=== PATIENT | female | born 1975 | race Caucasian/White ===

== ENCOUNTER 2016-12-30 11:57 | Emergency (ER) | payer BC ==
[2016-12-30 12:40] VITALS: BP 118/59
--- NOTE | 2016-12-30 13:53 | UC ---
Lower Extremity/Ankle HPI - HPI Summary HPI Summary: sudden pain in right lateral ankle began last night when she got off a snow mobile---has had continued pain and swelling - History of Current Complaint Chief Complaint: UCLowerExtremity Stated Complaint: RIGHT ANKLE INJURY Time Seen by Provider: 12/30/16 13:49 Hx Obtained From: Patient Hx Last Menstrual Period: 12/26/16 ?: No Onset/Duration: Sudden Onset, Lasting Hours - 18 hours Severity Initially: Mild Severity Currently: Moderate Pain Intensity: 7 Pain Scale Used: 0-10 Numeric Aggravating Factor(s): Standing, Ambulation Alleviating Factor(s): Rest, Elevation, OTC Meds Able to Bear Weight: Yes - on her heal - Allergies/Home Medications Allergies/Adverse Reactions: Allergies Allergy/AdvReac Type Severity Reaction Status Date / Time No Known Allergies Allergy Verified 12/30/16 12:40 Home Medications: Home Medications Montelukast Sodium TAB* [Singulair 10 MG TAB*] 10 mg PO DAILY 12/30/16 [History Confirmed 12/30/16] buPROPion SR TAB* [Wellbutrin SR TAB*] 150 mg PO BID 12/30/16 [History Confirmed 12/30/16] PMH/Surg Hx/FS Hx/Imm Hx Previously Healthy: No Respiratory History Of: Reports: Asthma - Surgical History Surgical History: Yes Surgery Procedure, Year, and Place: T&A as a child. left knee surgery - Family History Known Family History: Positive: None Family History: denies cardiovascular issues in family lineage - Social History Occupation: Employed Full-time Lives: With Family Alcohol Use: Weekly Substance Use Type: None Smoking Status (MU): Light Every Day Tobacco Smoker Type: Cigarettes Amount Used/How Often: 1 pack per week Length of Time of Smoking/Using Tobacco: On and Off for 19 Years Have You Smoked in the Last Year: Yes Household Exposure Type: Cigarettes - Immunization History Most Recent Tetanus Shot: unknown Review of Systems Constitutional: Negative Skin: Negative Eyes: Negative ENT: Negative Respiratory: Negative Cardiovascular: Negative Gastrointestinal: Negative Genitourinary: Negative Motor: Decreased ROM - right ankle Musculoskeletal: Arthralgia - right lateral ankle Neurological: Negative Psychological: Negative All Other Systems Reviewed And Are Negative: Yes Physical Exam Triage Information Reviewed: Yes Appearance: Well-Appearing, No Pain Distress, Well-Nourished Vital Signs: Initial Vital Signs Temp 97.1 F 12/30/16 12:33 Pulse 71 12/30/16 12:33 Resp 14 12/30/16 12:33 BP 118/59 12/30/16 12:33 Pulse Ox 97 12/30/16 12:33 Vital Signs Reviewed: Yes Eye Exam: Normal Eyes: Positive: Conjunctiva Clear ENT Exam: Normal ENT: Positive: Normal ENT inspection, Hearing grossly normal. Negative: Nasal congestion, Nasal drainage, Trismus, Muffled/hoarse voice Dental Exam: Normal Neck exam: Normal Neck: Positive: Supple, Nontender Respiratory Exam: Normal Respiratory: Positive: Chest non-tender, No respiratory distress, No accessory muscle use Cardiovascular Exam: Normal Cardiovascular: Positive: RRR, Pulses Normal, Brisk Capillary Refill Musculoskeletal: Positive: Strength Limited @ - right ankle, ROM Limited @ - right ankle, Edema @ - right ankle, Other: - pain ful and scant foot movement with Nur test Neurological Exam: Normal Neurological: Positive: Alert, Muscle Tone Normal Psychological Exam: Normal Skin Exam: Normal Diagnostics - Laboratory Diagnostic Studies Completed/Ordered: Soft tissue swelling-no acute bone injury Lower Extremity Course/Dx - Course Course Of Treatment: Giovany, gel ,nwb, walker, pain med rice follow with orth sunday or sunday - Differential Dx/Diagnosis Differential Diagnosis/HQI/PQRI: Contusion, Fracture (Closed), Sprain, Strain, Tendonitis Provider Diagnoses: Soft tissue injury right ankle Discharge - Discharge Plan Condition: Stable Disposition: HOME Prescriptions: Hydrocodone-Acetaminophen [Hydrocodone/Acetaminophen 5-325 mg] 1 tab PO Q6H PRN #20 tab MDD 4 PRN Reason: Pain Ibuprofen TAB* [Motrin TAB* 800 MG] 800 mg PO Q8H PRN #40 tab PRN Reason: Less sever pain Patient Education Materials: How to Choose and Use a Walker (GEN), RICE Therapy (ED), Tendon Rupture (ED), Ankle Strain (ED) Forms: *Work Release Referrals: Josh Herman MD [Medical Doctor] - 3 Days Lexis Benson NP [Primary Care Provider] - Additional Instructions: Non-weight bearing on right ankle/foot until cleared by ortho
[2016-12-30] MEDS ORDERED: Ibuprofen TAB* 400 MG PO ONE (13:55)
--- NOTE | 2016-12-30 14:33 | RAD ---
INDICATION: Lateral ankle pain after stepping ostial Mobile the previous night COMPARISON: None. TECHNIQUE: 3 views of the right ankle were obtained. FINDINGS: Moderate soft tissue swelling is seen overlying the fibular malleolus. The bones are normal alignment. Joint spaces appear maintained. No fracture is seen. IMPRESSION: SOFT TISSUE SWELLING AROUND THE ANKLE WITHOUT UNDERLYING FRACTURE OR DISLOCATION. If the patient's symptoms persist, follow-up imaging is recommended.
== END 2016-12-30 15:35 | disposition home or self-care (01) ==
LOC: UCCORT 11:57
DX: S99.911A Unspecified injury of right ankle, initial encounter (principal); X58.XXXA Exposure to other specified factors, initial encounter; Y93.89 Activity, other specified; Y92.9 Unspecified place or not applicable; F17.210 Nicotine dependence, cigarettes, uncomplicated
CPT/HCPCS: 99213; A9270-GY; G0463

== ENCOUNTER 2019-08-09 13:23 | Emergency (ER) | payer BC ==
--- NOTE | 2019-08-09 13:45 | UC ---
Complaint Female HPI - HPI Summary HPI Summary: INTERMITTENT LEFT LOWER BACK PAIN X1 MONTH. WORSENING INTHE LAST FEW DAYS. NO RECALL OF INJURY OR STRAIN. URINE HAS HAD A STRONG ODOR WELL. THAT IS HER ONLY SYMPTOM. HX OF KIDNEY STONE 20 YEARS AGO. NOTHING MAKES IT BETTER/WORSE - History Of Current Complaint Chief Complaint: UCBackPain Stated Complaint: URINARY SYMPTOMS Time Seen by Provider: 08/09/19 13:29 Hx Obtained From: Patient Hx Last Menstrual Period: 12/26/16 ?: No - vasectomy Aggravating Factor(s): Movement Alleviating Factor(s): Nothing - Allergies/Home Medications Allergies/Adverse Reactions: Allergies Allergy/AdvReac Type Severity Reaction Status Date / Time SEASONAL Allergy Unknown CONGESTION, Uncoded 08/09/19 13:35 RUNNY NOSE. Home Medications: Home Medications Escitalopram Oxalate [Lexapro 10 mg] 10 mg PO DAILY 08/09/19 [History Confirmed 08/09/19] PMH/Surg Hx/FS Hx/Imm Hx - Additional Past Medical History Additional PMH: NO CHRONIC CONDITIONS. Previously Healthy: Yes - Surgical History Surgical History: Yes Surgery Procedure, Year, and Place: T&A as a child. left knee surgery - Family History Known Family History: Positive: None Family History: denies cardiovascular issues in family lineage - Social History Alcohol Use: Weekly Substance Use Type: None Smoking Status (MU): Light Every Day Tobacco Smoker Type: Cigarettes Amount Used/How Often: 1 pack per week Length of Time of Smoking/Using Tobacco: On and Off for 19 Years Have You Smoked in the Last Year: Yes Household Exposure Type: Cigarettes - Immunization History Most Recent Tetanus Shot: unknown Review of Systems All Other Systems Reviewed And Are Negative: Yes Constitutional: Negative: Fever Skin: Negative: Rash Respiratory: Positive: Negative Cardiovascular: Positive: Negative Gastrointestinal: Negative: Abdominal Pain Genitourinary: Positive: Other - +ODOR URINE. Negative: Dysuria Musculoskeletal: Positive: Arthralgia - BACK PAIN Neurological: Negative: Headache, Weakness, Paresthesia, Numbness Physical Exam Triage Information Reviewed: Yes Appearance: Well-Appearing Vital Signs Reviewed: Yes Respiratory Exam: Normal Cardiovascular Exam: Normal Abdomen Description: Positive: Soft. Negative: CVA Tenderness (R), CVA Tenderness (L) Musculoskeletal: Positive: ROM Intact - LOWER BACK, Other: - ABLE TO GET ON/OFF EXAM TABLE W/ NO ISSUES. Neurological: Positive: Alert, Muscle Tone Normal Complaint Female Dx - Course Course Of Treatment: Intermittent L back pain and she thought she had a UTI. UA was unremarkable and we discussed possible muscular etiology. On exam back pain was not a renal level. vitals good,if dysuria or fever develops have asked her to return. For now stretching and nsaids for pain. - Differential Dx/Diagnosis Differential Diagnosis/HQI/PQRI: Urinary Tract Infection, Other Provider Diagnosis: Back pain Discharge ED - Sign-Out/Discharge Documenting (check all that apply): Patient Departure All imaging exams completed and their final reports reviewed: No Studies - Discharge Plan Condition: Good Disposition: HOME Prescriptions: Ibuprofen [Ibu] 600 mg PO TID 10 Days #30 tablet Patient Education Materials: Low Back Strain (ED) Referrals: Lexis Benson NP [Primary Care Provider] - Additional Instructions: You do not have a UTI today but I suspect you do have a muscle strain of some sort. I have sent nsaids to the pharmacy. If you do develop burning with urination please return. - Billing Disposition and Condition Condition: GOOD Disposition: Home
[2019-08-09 13:48] VITALS: BP 106/70
== END 2019-08-09 14:10 | disposition home or self-care (01) ==
LOC: UCCORT 13:23
DX: M54.9 Dorsalgia, unspecified (principal); F17.210 Nicotine dependence, cigarettes, uncomplicated
CPT/HCPCS: 81003; 84702; 99212; G0463